=== PATIENT | male | born 1975 | race Caucasian/White ===

== ENCOUNTER 2020-10-15 10:55 | Emergency (ER) | payer OTHER ==
[2020-10-15] MEDS ORDERED: MVI, Adult with Vitamin K 10 ML, Thiamine 100 MG, Folic Acid 1 MG in Sodium Chloride 0.... IV ONE ×4 (11:19)
[2020-10-15] MEDS ORDERED: LORazepam 2 MG/ML SDV IVPUSH ONE ×2 (11:31→11:33)
[2020-10-15] MEDS ORDERED: Haloperidol Lactate 5 MG/ML SDV IM ONE (11:32)
--- NOTE | 2020-10-15 11:39 | PCM.EKG ---
#1 Interpretation EKG Date: 10/15/20 Time: 10:59 Rhythm: NSR Rate (Beats/Min): 84 [place]: Normal P-Wave: Present QRS: Normal ST-T: Normal QT: Normal Comparison: NA - No Prior EKG EKG Interpretation Comments: Sinus Rhythm
[2020-10-15 12:30] LABS: ACETAMINOPHEN <2.0 ug/mL; BLOOD UREA NITROGEN,BUN 12 mg/dL (7.0-18.0); CARBON DIOXIDE,CO2 25.1 mmol/L (21.0-32.0); CHLORIDE,CL 103 mmol/L (98-107); GLUCOSE RANDOM 107 mg/dL (74-106); POTASSIUM,K 3.8 mmol/L (3.5-5.1); SODIUM,NA 143 mmol/L (136-148)
--- NOTE | 2020-10-15 13:30 | CR ---
Indication: Injury Technique: Examination consists of a single view of the chest and 2 additional images of the left ribcage. Comparison: There are no older studies for comparison. Findings: Heart size normal. Patchy bilateral airspace disease primarily in the mid and upper lungs probably inflammatory. Further evaluation is advised. No visible pleural effusion or pneumothorax. Regarding the ribcage, no fracture or destructive process. Impression: 1. Bilateral airspace process probably inflammatory. This is unlikely to be post traumatic. Further evaluation is recommended. No pleural effusion or pneumothorax. Paragraph 2. Regarding the left ribcage, no specific abnormality visible. Dictated by Fernando Way MD @ 10/15/2020 1:28:[address] Fernando [address] @ Oct 15 2020 1:28PM
--- NOTE | 2020-10-15 13:30 | CR ---
Indication: Trauma Technique: A total of two views of the left radius and ulna were acquired. Comparison: None Findings: Bones: Alignment is normal. No fractures or bone lesions. Joint spaces: Unremarkable. Soft tissues: Unremarkable. Impression: Normal plain film examination of the left radius and ulna Dictated by Fernando Way MD @ 10/15/2020 1:30:[address] Fernando [address] @ Oct 15 2020 1:30PM
--- NOTE | 2020-10-15 13:32 | CR ---
Indication: Trauma Technique: A total of two views of the left humerus were acquired. Comparison: None Findings: Bones: Alignment is normal. No fractures or bone lesions. Joint spaces: Unremarkable. Soft tissues: Unremarkable. Impression: Normal plain film examination of the left humerus. Dictated by Fernando Way MD @ 10/15/2020 1:31:[address] Fernando [address] @ Oct 15 2020 1:31PM
--- NOTE | 2020-10-15 13:39 | CT ---
INDICATION: Head injury. TECHNIQUE: Scanning of the head was performed without IV contrast material. Coronal and sagittal reconstructions were obtained. COMPARISON: None. FINDINGS: No intracranial hemorrhage is demonstrated. No mass effect or ventricular enlargement is evident. No calvarial or obvious facial fracture is identified. The visualized paranasal and mastoid sinuses are clear. On image 19 of series 201, subtle calcifications are demonstrated in the superior mid cerebellum, extending lateral to the midline on both sides. Calcifications associated with the cavernoma are suspected. IMPRESSION: 1. Negative for acute traumatic abnormality. 2. 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 Please note that all CT scans at this facility use dose modulation, iterative reconstruction, and/or weight-based dosing when appropriate to reduce radiation dose to as low as reasonably achievable. Dictated by Jose Maria Henry MD @ 10/15/2020 1:36:[address] Jose Maria Henry @ Oct 15 2020 1:36PM
--- NOTE | 2020-10-15 13:39 | CT ---
INDICATION: Fell. TECHNIQUE: Volumetric helical scanning of the cervical spine was performed without contrast material. Sagittal and coronal reconstructions were also obtained. COMPARISON: None. FINDINGS: No fracture, subluxation or prevertebral soft tissue swelling is demonstrated. The cervical spine is a lordotic. The exam is otherwise unremarkable. IMPRESSION: Negative CT of the cervical spine except for alordosis. Please note that all CT scans at this facility use dose modulation, iterative reconstruction, and/or weight-based dosing when appropriate to reduce radiation dose to as low as reasonably achievable. Dictated by Jose Maria Henry MD @ 10/15/2020 1:38:[address] Jose Maria Henry @ Oct 15 2020 1:38PM
--- NOTE | 2020-10-15 16:40 | CT ---
HISTORY: Abnormal chest x-ray. TECHNIQUE: Intravenous contrast enhanced CT of the chest. 65 mL of Isovue-370 intravenous contrast administered. COMPARISON: Radiographs 10/15/2020. FINDINGS: There is no thoracic aortic aneurysm or dissection. No pericardial effusion. No acute pulmonary embolism is seen. Right paratracheal lymph node on image #42 measures 1.3 cm short axis. Right paratracheal lymph node on image #53 measures 1.2 cm short axis. Mildly prominent subcarinal lymph nodes also present. - There are reticulonodular and nodular opacities within both lungs which involve the upper to mid lung zones to a greater degree than the lower lung zones. The nodules are of variable size measuring under 10 mm. For example, 6 mm right lower lobe pulmonary nodule image #109. 7 mm nodule within the left lower lobe on image #124. Right lung nodule adjacent minor fissure on image #95 measures 1 cm with central calcification. Peribronchial thickening is present. There is no pleural effusion or pneumothorax. - Small hiatal hernia. - Degenerative changes of the spine. No acute thoracic fracture. IMPRESSION: 1. No acute pulmonary embolism. 2. Bilateral reticulonodular and nodular infiltrates which favor the upper and mid lung zones. Differential considerations include atypical infectious process, sarcoidosis, lymphangitic carcinomatosis versus other process. Consider pulmonary consultation. 3. Mild mediastinal adenopathy in the right paratracheal and subcarinal distributions. Please note that all CT scans at this facility use dose modulation, iterative reconstruction, and/or weight-based dosing when appropriate to reduce radiation dose to as low as reasonably achievable. Dictated by Rafi Abbott MD @ 10/15/2020 4:38:[address] Rafi Abbott @ Oct 15 2020 4:38PM
--- NOTE | 2020-10-15 17:19 | EDM.PDOC ---
ED HPI GENERAL MEDICAL PROBLEM - General Chief Complaint: Behavioral/Psych Stated Complaint: SUICIDAL Time Seen by Provider: 10/15/20 11:05 Source of Information: Reports: Patient, EMS History Limitations: Reports: No Limitations - History of Present Illness INITIAL COMMENTS - FREE TEXT/NARRATIVE: HISTORY AND PHYSICAL: History of present illness: Patient is a 45-year-old male who presents to the ED today via EMS for concern of alcohol intoxication and suicidal ideation. Per EMS, they state that patient was combative in route to the emergency room as he did not want to come so had called law enforcement to help assist. According to patient, he had been on a "5-day guerra "and was needing help to stop drinking as he was unable to do it on his own so called 911. When EMS arrived on scene, according to EMS, patient told them that he wanted to kill himself so they brought him here to the emergency room. Upon arrival to the ED, he did tell nursing staff he wanted to kill himself and has been drinking consistently for 5 days. On my examination, patient declines any suicidal ideation but does state that he has been drinking heavily and wants to be able to get sober. Patient states he does have a history of alcohol use in the past but has been sober for quite some time until 5 days ago. Patient states that he feels like he cannot get himself to quit. Patient denies any suicide attempts or any history of suicide attempts. Patient states he is on a Suboxone program and takes this daily and has not yet taken his Suboxone this morning. Patient denies fever, chills, chest pain, shortness of breath, or cough. Denies headache, neck stiff ness, change in vision, syncope, or near syncope. Denies nausea, vomiting, abdominal pain, diarrhea, constipation, or dysuria. Has not noted any blood in urine or stool. Patient has been eating and drinking appropriately. Review of systems: As per history of present illness and below otherwise all systems reviewed and negative. Past medical history: As per history of present illness and as reviewed below otherwise noncontributory. Surgical history: As per history of present illness and as reviewed below otherwise noncontributory. Social history: See social history for further information Family history: As per history of present illness and as reviewed below otherwise noncontributory. Physical exam: General: Patient is alert, oriented to person and place but not time, and in no acute distress. Clinically appears intoxicated. Patient pacing throughout exam room, anxious appearing. HEENT: Atraumatic, normocephalic, pupils equal and reactive bilaterally, negative for conjunctival pallor or scleral icterus, mucous membranes dry, TMs normal bilaterally, throat clear, neck supple, nontender, trachea midline. No drooling or trismus noted. No meningeal signs. No hot potato voice noted. Lungs/chest: Purple ecchymosis noted to the left posterior rib cage. Otherwise, clear to auscultation, breath sounds equal bilaterally, chest nontender. Heart: S1S2, regular rate and rhythm without overt murmur Abdomen: Soft, nondistended, nontender. Negative for masses or hepatosplenomegaly. Negative for costovertebral tenderness. Pelvis: Stable nontender. Genitourinary: Deferred. Rectal: Deferred. Skin: Intact, warm, dry. No lesions or rashes noted. Extremities: Purple ecchymosis noted to the left forearm and bicep area. Patient has full range of motion of all extremities without difficulty. Otherwise, atraumatic, negative for cords or calf pain. Neurovascular unremarkable. Neuro: Awake, alert, oriented. Cranial nerves II through XII unremarkable. Cerebellum unremarkable. Motor and sensory unremarkable throughout. Exam nonfocal. Notes: Dr. Helm verbally involved in patient case including disposition for patient. Patient is a 45-year-old male who presents to the ED today via EMS with concern of alcohol intoxication and suicidal ideation. Upon arrival to the ED, patient is vitally stable and clinically does appear intoxicated, confused, and anxious pacing through the room. He does not express suicidal ideation to myself, but did express to nursing staff and EMS suicidal ideation. Will perform mental health evaluation at this time and suicidal precautions initiated upon arrival to ED. Patient states bruising noted on physical exam is secondary to falling on his dog's kennel due to alcohol intoxication. Due to bruising noted over the left posterior rib cage and bruising noted to the arm we will also obtain imaging of this. Due to known fall, and alcohol intoxication will also obtain head CT as unsure if patient hit head during fall. While awaiting lab work, I was informed that patient is ripping hospital gowns and showing aggressive behavior. Upon my reexamination of patient, he states that he is feeling anxious and like he cannot sit still. Patient states that he believes he is withdrawing from his Suboxone as he has not taken it this morning. Patient does have Suboxone in his wallet which is in the possession of nursing staff. I did allow patient to take his own personal dose of Suboxone in the ED. Will also give a dose of Haldol and Ativan at this time and reassess patient. CBC mild derangements unremarkable. CMP noted for mild elevation in glucose at 107, calcium 8.1, ALT of 74, mild elevation of creatinine kinase at 312, otherwise mild derangements unremarkable. TSH 1.56. Urinalysis is clear. Salicylate 1.4. Negative urine drug screen. Acetaminophen negative. ETOH 234. Covid negative. Repeat chest x-ray shows bilateral airspace process probably inflammatory. This is unlikely to be posttraumatic. Further evaluation is recommended. No pleural effusion or pneumothorax. Regarding left rib cage, no specific abnormality visible. In the presence of a negative Covid, will obtain and CT scan to further assess chest x-ray interpretation. Upon reevaluation of patient, he is more comfortable after taking his Suboxone and given Haldol and Ativan today in the ED and resting / sleeping awaiting diagnostic completion. Discussed with patient chest x-ray findings at this time and that I would like to obtain an angiography CT of his chest to further assess the airspace process noted on chest x-ray. He is agreeable to this. Forearm x-ray left shows normal plain film examination of the left radius and ulna. Humerus x-ray left shows normal plain film examination of the left humerus. Cervical spine CT shows negative CT of the cervical spine. Head CT shows negative for acute traumatic abnormality. 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 All incidental findings today discussed with patient and the importance for follow-up with primary care provider. Ang CT scan shows no acute pulmonary embolism. Bilateral reticular nodular and nodular infiltrates which favor the upper and midlung zones. Differential considerations include atypical infectious process, sarcoidosis, lymphangitic carcinomatosis versus other process. Concern pulmonary consult. Mild mediastinal adenopathy in the right paratracheal and subcranial distributions. I did call and speak to the mechanical energy engineer on-call for Dr. Danielle Martins, and thoroughly discussed patient's case. He recommends placing patient on doxycycline 100 mg twice daily for 7 days and to have a repeat chest x-ray in 3 to 4 weeks and close follow-up with his primary care provider. He recommends that if this does not resolve the infectious process, then can consider referral for pulmonology consult. At this time, due to delays in obtaining ANG CT scan and completion of diagnostics, at this time, patient has now been in the ED for 6 hours. Upon my reexamination of patient, he is clinically sober and alert and orientated x 4. He is no longer anxious/aggressive, well appearing, vitally stable and comfortable. Upon my reassessment, patient declines adamantly suicidal ideation/plan 16:40: Suicide precautions lifted in agreement with myself and Dr. Helm. Patient is sober, alert, orientated x 4 and declining suicidal thoughts, ideation, or plan. Witnessed by myself and nursing staff. Signs and symptoms that were prompt return to the ED thoroughly discussed with patient. Discussed importance for follow-up with a primary care provider. Voices understanding and is agreeable to plan of care. Denies any further questions or concerns at this time. Diagnostics: CBC, CMP, magnesium, UA, urine drug screen, acetaminophen, salicylate, TSH, EKG, ethanol, rib with chest x-ray, humerus x-ray, forearm x-ray, head CT, cervical spine CT, angiography chest CT Therapeutics: Ativan, Haldol, banana bag Prescription: Doxycycline Impression: Alcohol intoxication Atypical pneumonia Plan: 1. Take medication as prescribed. If you desire out patient resources to stop drinking, they have been provided above for you to call. 2. Follow-up with your primary care provider in 3 to 4 weeks for repeat chest x-ray as discussed. Return to the ED as needed and as discussed. Definitive disposition and diagnosis as appropriate pending reevaluation and review of above. - Related Data Allergies Allergy/AdvReac Type Severity Reaction Status Date / Time Penicillins Allergy Hives Verified 10/15/20 11:34 Home Meds: Home Meds Doxycycline [Vibramycin] 100 mg PO BID 7 Days #14 cap 10/15/20 [Rx] Sertraline [Zoloft] 50 mg PO DAILY 10/15/20 [History] buPROPion [Wellbutrin] 1 tab PO DAILY 10/15/20 [History] Past Medical History - Past Health History Medical/Surgical History: Denies Medical/Surgical History Respiratory History: Reports: Asthma Psychiatric History: Reports: Anxiety, Depression - Infectious Disease History Infectious Disease History: Reports: None Social & Family History - Family History Family Medical History: No Pertinent Family History - Tobacco Use Tobacco Use Status *Q: Never Tobacco User - Caffeine Use Caffeine Use: Reports: None - Recreational Drug Use Recreational Drug Use: No ED ROS GENERAL - Review of Systems Review Of Systems: Comprehensive ROS is negative, except as noted in HPI. ED EXAM, GENERAL - Physical Exam Exam: See Below (see dictation) Course - Vital Signs Last Recorded V/S: Last Vital Signs Temp 97.6 F 10/15/20 10:55 Pulse 93 10/15/20 18:02 Resp 18 10/15/20 18:02 BP 139/92 H 10/15/20 18:02 Pulse Ox 94 L 10/15/20 18:02 - Orders/Labs/Meds Labs: Laboratory Tests 10/15/20 10/15/20 10/15/20 Range/Units 11:23 11:23 11:24 WBC 8.28 (4.0-11.0) K/uL RBC 5.34 (4.50-5.90) M/uL Hgb 15.5 (13.0-17.0) g/dL Hct 45.3 (38.0-50.0) % MCV 84.8 (80.0-98.0) fL MCH 29.0 (27.0-32.0) pg MCHC 34.2 (31.0-37.0) g/dL RDW Std Deviation 41.2 (28.0-62.0) fl RDW Coeff of Davon 13 (11.0-15.0) % Plt Count 319 (150-400) K/uL MPV 9.80 (7.40-12.00) fL Neut % (Auto) 77.1 (48.0-80.0) % Lymph % (Auto) 16.7 (16.0-40.0) % Glynn % (Auto) 5.7 (0.0-15.0) % Eos % (Auto) 0.1 (0.0-7.0) % Baso % (Auto) 0.4 (0.0-1.5) % Neut # (Auto) 6.4 H (1.4-5.7) K/uL Lymph # (Auto) 1.4 (0.6-2.4) K/uL Glynn # (Auto) 0.5 (0.0-0.8) K/uL Eos # (Auto) 0.0 (0.0-0.7) K/uL Baso # (Auto) 0.0 (0.0-0.1) K/uL Nucleated RBC % 0.0 /100WBC Nucleated RBCs # 0 K/uL Sodium 143 (136-148) mmol/L Potassium 3.8 (3.5-5.1) mmol/L Chloride 103 (98-107) mmol/L Carbon Dioxide 25.1 (21.0-32.0) mmol/L BUN 12 (7.0-18.0) mg/dL Creatinine 0.9 (0.8-1.3) mg/dL Est Cr Clr Drug Dosing 116.16 mL/min Estimated GFR (MDRD) > 60.0 ml/min Glucose 107 H (74-106) mg/dL POC Glucose 109 H (70-99) mg/dL Calcium 8.1 L (8.5-10.1) mg/dL Magnesium 2.1 (1.8-2.4) mg/dL Total Bilirubin 0.3 (0.2-1.0) mg/dL AST 27 (15-37) IU/L ALT 74 H (14-63) IU/L Alkaline Phosphatase 106 (46-116) U/L Creatine Kinase 312 H (26-308) U/L Total Protein 8.5 H (6.4-8.2) g/dL Albumin 3.8 (3.4-5.0) g/dL Globulin 4.7 H (2.6-4.0) g/dL Albumin/Globulin Ratio 0.8 L (0.9-1.6) TSH 3rd Generation 1.56 (0.36-3.74) uIU/mL Urine Color Urine Appearance Urine pH (5.0-8.0) Ur Specific [place] (1.001-1.035) Urine Protein (NEGATIVE) mg/dL Urine Glucose (UA) (NEGATIVE) mg/dL Urine Ketones (NEGATIVE) mg/dL Urine Occult Blood (NEGATIVE) Urine Nitrite (NEGATIVE) Urine Bilirubin (NEGATIVE) Urine Urobilinogen (<2.0) EU/dL Ur Leukocyte Esterase (NEGATIVE) Urine RBC (0-2/HPF) Urine WBC (0-5/HPF) Ur Epithelial Cells (NONE-FEW) Urine Bacteria (NEGATIVE) Salicylates 1.4 (0-20) mg/dL Urine Opiates Screen (NEGATIVE) Ur Oxycodone Screen (NEGATIVE) Urine Methadone Screen (NEGATIVE) Acetaminophen <2.0 ug/mL Ur Barbiturates Screen (NEGATIVE) Ur Phencyclidine Scrn (NEGATIVE) Ur Amphetamine Screen (NEGATIVE) U Methamphetamines Scrn (NEGATIVE) U Benzodiazepines Scrn (NEGATIVE) U Cocaine Metab Screen (NEGATIVE) U Marijuana (THC) Screen (NEGATIVE) Ethyl Alcohol 234 mg/dL SARS-CoV-2 RNA (IZABELA) (NEGATIVE) 10/15/20 10/15/20 10/15/20 Range/Units 12:00 12:00 14:00 WBC (4.0-11.0) K/uL RBC (4.50-5.90) M/uL Hgb (13.0-17.0) g/dL Hct (38.0-50.0) % MCV (80.0-98.0) fL MCH (27.0-32.0) pg MCHC (31.0-37.0) g/dL RDW Std Deviation (28.0-62.0) fl RDW Coeff of Davon (11.0-15.0) % Plt Count (150-400) K/uL MPV (7.40-12.00) fL Neut % (Auto) (48.0-80.0) % Lymph % (Auto) (16.0-40.0) % Glynn % (Auto) (0.0-15.0) % Eos % (Auto) (0.0-7.0) % Baso % (Auto) (0.0-1.5) % Neut # (Auto) (1.4-5.7) K/uL Lymph # (Auto) (0.6-2.4) K/uL Glynn # (Auto) (0.0-0.8) K/uL Eos # (Auto) (0.0-0.7) K/uL Baso # (Auto) (0.0-0.1) K/uL Nucleated RBC % /100WBC Nucleated RBCs # K/uL Sodium (136-148) mmol/L Potassium (3.5-5.1) mmol/L Chloride (98-107) mmol/L Carbon Dioxide (21.0-32.0) mmol/L BUN (7.0-18.0) mg/dL Creatinine (0.8-1.3) mg/dL Est Cr Clr Drug Dosing mL/min Estimated GFR (MDRD) ml/min Glucose (74-106) mg/dL POC Glucose (70-99) mg/dL Calcium (8.5-10.1) mg/dL Magnesium (1.8-2.4) mg/dL Total Bilirubin (0.2-1.0) mg/dL AST (15-37) IU/L ALT (14-63) IU/L Alkaline Phosphatase (46-116) U/L Creatine Kinase (26-308) U/L Total Protein (6.4-8.2) g/dL Albumin (3.4-5.0) g/dL Globulin (2.6-4.0) g/dL Albumin/Globulin Ratio (0.9-1.6) TSH 3rd Generation (0.36-3.74) uIU/mL Urine Color YELLOW Urine Appearance CLEAR Urine pH 6.0 (5.0-8.0) Ur Specific [place] 1.025 (1.001-1.035) Urine Protein NEGATIVE (NEGATIVE) mg/dL Urine Glucose (UA) NEGATIVE (NEGATIVE) mg/dL Urine Ketones NEGATIVE (NEGATIVE) mg/dL Urine Occult Blood TRACE-INTACT H (NEGATIVE) Urine Nitrite NEGATIVE (NEGATIVE) Urine Bilirubin NEGATIVE (NEGATIVE) Urine Urobilinogen 0.2 (<2.0) EU/dL Ur Leukocyte Esterase NEGATIVE (NEGATIVE) Urine RBC 0-2 (0-2/HPF) Urine WBC 0-1 (0-5/HPF) Ur Epithelial Cells RARE (NONE-FEW) Urine Bacteria RARE (NEGATIVE) Salicylates (0-20) mg/dL Urine Opiates Screen NEGATIVE (NEGATIVE) Ur Oxycodone Screen NEGATIVE (NEGATIVE) Urine Methadone Screen NEGATIVE (NEGATIVE) Acetaminophen ug/mL Ur Barbiturates Screen NEGATIVE (NEGATIVE) Ur Phencyclidine Scrn NEGATIVE (NEGATIVE) Ur Amphetamine Screen NEGATIVE (NEGATIVE) U Methamphetamines Scrn NEGATIVE (NEGATIVE) U Benzodiazepines Scrn NEGATIVE (NEGATIVE) U Cocaine Metab Screen NEGATIVE (NEGATIVE) U Marijuana (THC) Screen NEGATIVE (NEGATIVE) Ethyl Alcohol mg/dL SARS-CoV-2 RNA (IZABELA) NEGATIVE (NEGATIVE) Meds: Medications Discontinued Medications Generic Name Dose Route Start Last Admin Trade Name Kristyn PRN Reason Stop Dose Admin Haloperidol Lactate 5 mg 10/15/20 11:32 10/15/20 12:25 Haloperidol Lactate 5 Mg/Ml Sdv IM 10/15/20 11:33 5 mg ONETIME ONE Administration Multivitamins/Minerals 10 ml/ 1,011.2 mls @ 999 mls/hr 10/15/20 11:19 10/15/20 12:27 Thiamine HCl 100 mg/ Folic IV 10/15/20 12:19 999 mls/hr Acid 1 mg/ Sodium Chloride ONETIME ONE Administration Iopamidol 65 ml 10/15/20 18:13 10/15/20 18:14 Iopamidol 755 Mg/Ml 500 Ml Multipack Bottle IVPUSH 10/15/20 18:14 65 ml ONETIME STA Administration Lorazepam 2 mg 10/15/20 11:31 10/15/20 12:15 Lorazepam 2 Mg/Ml Sdv IVPUSH 10/15/20 11:32 Not Given ONETIME ONE Lorazepam 1 mg 10/15/20 11:33 10/15/20 12:26 Lorazepam 2 Mg/Ml Sdv IVPUSH 10/15/20 11:34 1 mg ONETIME ONE Administration Departure - Departure Time of Disposition: 17:17 Disposition: Home, Self-Care 01 Clinical Impression: Atypical pneumonia Alcohol intoxication Qualifiers: Complication of substance-induced condition: with unspecified complication Qualified Code(s): F10.929 - Alcohol use, unspecified with intoxication, unspecified - Discharge Information Prescriptions: Doxycycline [Vibramycin] 100 mg PO BID 7 Days #14 cap Instructions: Alcohol Intoxication, [id number], Community-Acquired Pneumonia, Adult, [id number] Referrals: PCP,None [Primary Care Provider] - Forms: ED Department Discharge Additional Instructions: The following information is given to patients seen in the emergency department who are being discharged to home. This information is to outline your options for follow-up care. We provide all patients seen in our emergency department with a follow-up referral. The need for follow-up, as well as the timing and circumstances, are variable depending upon the specifics of your emergency department visit. If you don't have a primary care physician on staff, we will provide you with a referral. We always advise you to contact your personal physician following an emergency department visit to inform them of the circumstance of the visit and for follow-up with them and/or the need for any referrals to a consulting specialist. The emergency department will also refer you to a specialist when appropriate. This referral assures that you have the opportunity for follow-up care with a specialist. All of these measure are taken in an effort to provide you with optimal care, which includes your follow-up. Under all circumstances we always encourage you to contact your private physician who remains a resource for coordinating your care. When calling for follow-up care, please make the office aware that this follow-up is from your recent emergency room visit. If for any reason you are refused follow-up, please contact the [facility] Emergency Department at and asked to speak to the emergency department charge nurse. [facility] [address] [place] [id number] [facility] [address] [place] [id number] [facility] [address], [place] [facility] [place] [address], [place] [facility] [place] [address] [place] [address] [facility] Partial Hospitalization Program [address] [address] [facility] [address] [facility] [id number] 1. Take medication as prescribed. If you desire out patient resources to stop drinking, they have been provided above for you to call. 2. Follow-up with your primary care provider in 3 to 4 weeks for repeat chest x-ray as discussed. Return to the ED as needed and as discussed. Sepsis Event Note (ED) - Evaluation Sepsis Screening Result: No Definite Risk
[2020-10-15] MEDS ORDERED: Iopamidol 755 MG/ML 500 ML Multipack Bottle IVPUSH STA (18:13)
== END 2020-10-15 18:02 | disposition home or self-care (01) ==
LOC: MW.ED 10:55
DX: F10.129 Alcohol abuse with intoxication, unspecified (principal); J18.9 Pneumonia, unspecified organism; J45.909 Unspecified asthma, uncomplicated; Z88.0 Allergy status to penicillin; Z79.899 Other long term (current) drug therapy; Z20.822 Contact with and (suspected) exposure to COVID-19; Y90.7 Blood alcohol level of 200-239 mg/100 ml
CPT/HCPCS: 36415; 70450; 71101; 71275; 72125; 73060; 73090; 80053; 80143; 80179; 80305; 80307; 81001; 82550; 82947; 83735; 84443; 85025; 87635; 93005; 96365; 96375; 99285; J1630; J2060; J3411; J7030; Q9967; 93010; 99284; U0002

== ENCOUNTER 2020-10-20 18:18 | Emergency (ER) | payer OTHER ==
[2020-10-20] MEDS ORDERED: LORazepam 2 MG/ML SDV IVPUSH ONE ×3 (18:22→21:37)
[2020-10-20] MEDS ORDERED: Sodium Chloride 0.9% 2.5 ML Syringe FLUSH PRN (18:22)
[2020-10-20] MEDS ORDERED: Sodium Chloride 0.9% 10 ML Syringe FLUSH PRN (18:22)
[2020-10-20] MEDS ORDERED: Ondansetron 4 MG/2 ML SDV IVPUSH ONE (18:22)
[2020-10-20] MEDS ORDERED: Haloperidol Lactate 5 MG/ML SDV ONE (18:23)
[2020-10-20] MEDS ORDERED: LORazepam 2 MG/ML SDV ONE ×2 (18:23→18:39)
[2020-10-20] MEDS ORDERED: Haloperidol Lactate 5 MG/ML SDV IM ONE (18:28)
[2020-10-20] MEDS ORDERED: MVI, Adult with Vitamin K 10 ML, Thiamine 100 MG, Folic Acid 1 MG in Sodium Chloride 0.... IV ONE ×4 (18:30)
--- NOTE | 2020-10-20 18:36 | EDM.PDOC ---
<Fareed Lin - Last Filed: 10/20/20 18:34> ED HPI GENERAL MEDICAL PROBLEM - General Chief Complaint: Drug or Alcohol Abuse Stated Complaint: INTOXICATION Time Seen by Provider: 10/20/20 18:32 - History of Present Illness INITIAL COMMENTS - FREE TEXT/NARRATIVE: History of present illness: [] This patient who has been sober for 10 years according to the mother began to drink again 3 weeks or so ago. He was seen here for possible detox a few days ago and diagnosed with pneumonia. He was started on antibiotics. He continues to drink. He comes in apologetic crying and begging for help. He says he needs help but he does not trust us to give him help because he does not think we gave him enough help last time. He also is requesting Valium. He clearly states that he wants to get sober. He does not feel he can do this on his own. Mother says he is however intoxicated at the moment. The patient has fallen recently. The patient has bruises over his arm. The mother says he fell onto a hard surface. The patient has been to detox in the remote past. He clearly states he wants to live and he wants help. Review of systems: As per history of present illness and below otherwise all systems reviewed and negative. Past medical history: As per history of present illness and as reviewed below otherwise noncontributory. Surgical history: As per history of present illness and as reviewed below otherwise noncontributory. Social history: No reported history of drug or alcohol abuse. Family history: As per history of present illness and as reviewed below otherwise noncontributory. Physical exam: Constitutional - well developed, well-nourished and in no acute distress HEENT - normocephalic, no evidence of trauma - external nose and mouth normal - no mass in neck and no JVD - mucosae moist EYES - full EOM, PERRL, no icterus - no evidence of inflammation, injection, or drainage Respiratory - no respiratory distress, equal bilateral expansion, lungs clear to auscultation and no abnormal lung sounds Cardiovascular - Regular Rhythm with S1 and S2 appreciated and no murmur, gallop or rub. GI - abdomen soft without distension or organomegaly - normal bowel sounds - no guard or rebound Musculoskeletal no gross deformity of long bones or joints - no tenderness, swelling or edema Neurologic - Alert and oriented times four -slurred speech and ataxia. He got up and tried to walk. I reviewed his records and he is trying to leave last time after he decided he wanted help. Medications given with the approval of the mother and based on the fact that they worked and helped him last time. CN II-XII grossly intact - motor sensory and coordination symmetrically normal Psychiatric - appropriate mood and affect with normal thought content Hematologic - No petechiae or purpura - mucosa appropriate color and sclera not pale - normal nail bed color and refill Integument - no rash or evidence of trauma - normal turgor Diagnostics: [] Therapeutics: [] Impression: [] Plan: [] Definitive disposition and diagnosis as appropriate pending reevaluation and review of above. - Related Data Allergies Allergy/AdvReac Type Severity Reaction Status Date / Time Penicillins Allergy Hives Verified 10/20/20 18:22 Home Meds: Home Meds Doxycycline [Vibramycin] 100 mg PO BID 7 Days #14 cap 10/15/20 [Rx] Sertraline [Zoloft] 50 mg PO DAILY 10/15/20 [History] buPROPion [Wellbutrin] 1 tab PO DAILY 10/15/20 [History] Past Medical History - Past Health History Medical/Surgical History: Denies Medical/Surgical History HEENT History: Reports: None Cardiovascular History: Reports: None Respiratory History: Reports: Asthma Gastrointestinal History: Reports: None Genitourinary History: Reports: None Musculoskeletal History: Reports: None Neurological History: Reports: None Psychiatric History: Reports: Anxiety, Depression Endocrine/Metabolic History: Reports: None Hematologic History: Reports: None Immunologic History: Reports: None Oncologic (Cancer) History: Reports: None Dermatologic History: Reports: None - Infectious Disease History Infectious Disease History: Reports: None - Past Surgical History Head Surgeries/Procedures: Reports: None HEENT Surgical History: Reports: None Cardiovascular Surgical History: Reports: None Respiratory Surgical History: Reports: None GI Surgical History: Reports: None Male Surgical History: Reports: None Endocrine Surgical History: Reports: None Neurological Surgical History: Reports: None Musculoskeletal Surgical History: Reports: None Oncologic Surgical History: Reports: None Dermatological Surgical History: Reports: None Social & Family History - Family History Family Medical History: No Pertinent Family History - Tobacco Use Tobacco Use Status *Q: Never Tobacco User Second Hand Smoke Exposure: No - Caffeine Use Caffeine Use: Reports: None - Recreational Drug Use Recreational Drug Use: No ED ROS GENERAL - Review of Systems Review Of Systems: Comprehensive ROS is negative, except as noted in HPI. ED EXAM, GENERAL - Physical Exam Exam: See Below Free Text/Narrative:: My physical exam is in the HPI Departure - Departure Disposition: DC/[facility]fer to [facility] 02 Clinical Impression: Alcohol abuse - Discharge Information Forms: ED Department Discharge Sepsis Event Note (ED) - Evaluation Sepsis Screening Result: No Definite Risk <Marcos Santiago - Last Filed: 10/20/20 20:43> Course - Vital Signs Last Recorded V/S: Last Vital Signs Temp 98.4 F 10/20/20 18:19 Pulse 94 10/20/20 19:30 Resp 18 10/20/20 19:30 BP 111/75 10/20/20 19:30 Pulse Ox 98 10/20/20 18:19 - Orders/Labs/Meds Orders: Active Orders 24 hr Category Date Time Status CORONAVIRUS COVID-19 IZABELA [MOLEC] Stat Lab 10/20/20 20:39 Ordered DRUG SCREEN, URINE [URCHEM] Stat Lab 10/20/20 18:22 Ordered Sodium Chloride 0.9% [Saline Flush] Med 10/20/20 18:22 Active 10 ml FLUSH ASDIRECTED PRN Sodium Chloride 0.9% [Saline Flush] Med 10/20/20 18:22 Active 2.5 ml FLUSH ASDIRECTED PRN Saline Lock Insert [OM.PC] Stat Oth 10/20/20 18:22 Ordered Medication Orders Sodium Chloride (Sodium Chloride 0.9% 10 Ml Syringe) 10 ml FLUSH ASDIRECTED PRN PRN Reason: Keep Vein Open Last Admin: 10/20/20 18:32 Dose: 10 ml Documented by: MINA Sodium Chloride (Sodium Chloride 0.9% 2.5 Ml Syringe) 2.5 ml FLUSH ASDIRECTED PRN PRN Reason: Keep Vein Open Last Admin: 10/20/20 18:32 Dose: 2.5 ml Documented by: MINA Labs: Laboratory Tests 10/20/20 10/20/20 10/20/20 Range/Units 18:30 18:30 18:34 WBC 8.41 (4.0-11.0) K/uL RBC 5.65 (4.50-5.90) M/uL Hgb 16.5 (13.0-17.0) g/dL Hct 48.0 (38.0-50.0) % MCV 85.0 (80.0-98.0) fL MCH 29.2 (27.0-32.0) pg MCHC 34.4 (31.0-37.0) g/dL RDW Std Deviation 41.3 (28.0-62.0) fl RDW Coeff of Davon 14 (11.0-15.0) % Plt Count 265 (150-400) K/uL MPV 9.90 (7.40-12.00) fL Neut % (Auto) 77.0 (48.0-80.0) % Lymph % (Auto) 14.4 L (16.0-40.0) % [place] % (Auto) 8.0 (0.0-15.0) % Eos % (Auto) 0.4 (0.0-7.0) % Baso % (Auto) 0.2 (0.0-1.5) % Neut # (Auto) 6.5 H (1.4-5.7) K/uL Lymph # (Auto) 1.2 (0.6-2.4) K/uL [place] # (Auto) 0.7 (0.0-0.8) K/uL Eos # (Auto) 0.0 (0.0-0.7) K/uL Baso # (Auto) 0.0 (0.0-0.1) K/uL Nucleated RBC % 0.0 /100WBC Nucleated RBCs # 0 K/uL Sodium 141 (136-148) mmol/L Potassium 3.8 (3.5-5.1) mmol/L Chloride 104 (98-107) mmol/L Carbon Dioxide 25.7 (21.0-32.0) mmol/L BUN 9 (7.0-18.0) mg/dL Creatinine 1.0 (0.8-1.3) mg/dL Est Cr Clr Drug Dosing 107.64 mL/min Estimated GFR (MDRD) > 60.0 ml/min Glucose 148 H (74-106) mg/dL POC Glucose 132 H (70-99) mg/dL Calcium 8.3 L (8.5-10.1) mg/dL Total Bilirubin 0.3 (0.2-1.0) mg/dL AST 40 H (15-37) IU/L ALT 89 H (14-63) IU/L Alkaline Phosphatase 112 (46-116) U/L Total Protein 8.3 H (6.4-8.2) g/dL Albumin 3.7 (3.4-5.0) g/dL Globulin 4.6 H (2.6-4.0) g/dL Albumin/Globulin Ratio 0.8 L (0.9-1.6) Ethyl Alcohol 376 mg/dL Meds: Medications Generic Name Dose Route Start Last Admin Trade Name Freq PRN Reason Stop Dose Admin Sodium Chloride 10 ml 10/20/20 18:22 10/20/20 18:32 Sodium Chloride 0.9% 10 Ml Syringe FLUSH 10 ml ASDIRECTED PRN Administration Keep Vein Open Sodium Chloride 2.5 ml 10/20/20 18:22 10/20/20 18:32 Sodium Chloride 0.9% 2.5 Ml Syringe FLUSH 2.5 ml ASDIRECTED PRN Administration Keep Vein Open Discontinued Medications Generic Name Dose Route Start Last Admin Trade Name Freq PRN Reason Stop Dose Admin Haloperidol Lactate Confirm 10/20/20 18:23 10/20/20 18:29 Haloperidol Lactate 5 Mg/Ml Sdv Administered 10/20/20 18:24 Not Given Dose 5 mg .ROUTE .STK-MED ONE Haloperidol Lactate 5 mg 10/20/20 18:28 10/20/20 18:29 Haloperidol Lactate 5 Mg/Ml Sdv IM 10/20/20 18:29 5 mg ONETIME ONE Administration Multivitamins/Minerals 10 ml/ 1,011.2 mls @ 500 mls/hr 10/20/20 18:30 10/20/20 18:50 Thiamine HCl 100 mg/ Folic IV 10/20/20 20:31 500 mls/hr Acid 1 mg/ Sodium Chloride ONETIME ONE Administration Lorazepam 1 mg 10/20/20 18:22 10/20/20 18:30 Lorazepam 2 Mg/Ml Sdv IVPUSH 10/20/20 18:23 1 mg ONETIME ONE Administration Lorazepam Confirm 10/20/20 18:23 10/20/20 18:29 Lorazepam 2 Mg/Ml Sdv Administered 10/20/20 18:24 Not Given Dose 2 mg .ROUTE .STK-MED ONE Lorazepam 2 mg 10/20/20 18:40 10/20/20 18:41 Lorazepam 2 Mg/Ml Sdv IVPUSH 10/20/20 18:41 2 mg ONETIME ONE Administration Lorazepam Confirm 10/20/20 18:39 10/20/20 18:43 Lorazepam 2 Mg/Ml Sdv Administered 10/20/20 18:40 Not Given Dose 2 mg .ROUTE .STK-MED ONE Ondansetron HCl 4 mg 10/20/20 18:22 10/20/20 18:32 Ondansetron 4 Mg/2 Ml Sdv IVPUSH 10/20/20 18:23 4 mg ONETIME ONE Administration - Re-Assessments/Exams Free Text/Narrative Re-Assessment/Exam: 10/20/20 20:42 Labs unremarkable aside from elevated blood alcohol level. Patient wants to go to inpatient alcohol rehab. I talked with Dr. Tijerina at [facility] who agrees to accept patient for transfer Departure - Departure Time of Disposition: 20:42 Condition: Fair Sepsis Event Note (ED) - Focused Exam Vital Signs: Vital Signs Temp Pulse Resp BP Pulse Ox 10/20/20 19:30 94 18 111/75 10/20/20 18:19 98.4 F 82 15 122/79 98 - My Orders Last 24 Hours: My Active Orders 10/20/20 20:39 CORONAVIRUS COVID-19 IZABELA [MOLEC] Stat - Assessment/Plan Last 24 Hours: My Active Orders 10/20/20 20:39 CORONAVIRUS COVID-19 IZABELA [MOLEC] Stat
[2020-10-20 18:58] LABS: BLOOD UREA NITROGEN,BUN 9 mg/dL (7.0-18.0); CARBON DIOXIDE,CO2 25.7 mmol/L (21.0-32.0); CHLORIDE,CL 104 mmol/L (98-107); GLUCOSE RANDOM 148 mg/dL (74-106); POTASSIUM,K 3.8 mmol/L (3.5-5.1); SODIUM,NA 141 mmol/L (136-148)
[2020-10-20] MEDS ORDERED: LORazepam 2 MG/ML SDV IM ONE (21:38)
== END 2020-10-20 23:45 ==
LOC: MW.ED 18:18
DX: F10.129 Alcohol abuse with intoxication, unspecified (principal); J45.909 Unspecified asthma, uncomplicated; Z79.899 Other long term (current) drug therapy; Z88.0 Allergy status to penicillin; Y90.8 Blood alcohol level of 240 mg/100 ml or more
CPT/HCPCS: 36415; 80053; 80305; 80307; 82947; 85025; 87635; 96365; 96372; 96375; 99285; J1630; J2060; J2405; J3411; J7030; 99284; U0002

== ENCOUNTER 2020-11-28 20:49 | Emergency (ER) | payer OTHER ==
[2020-11-28] MEDS ORDERED: Sodium Chloride 0.9% 1,000 ML IV ONE (21:02)
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
[2020-11-28 21:31] LABS: BLOOD UREA NITROGEN,BUN 12 mg/dL (7.0-18.0); CARBON DIOXIDE,CO2 22.9 mmol/L (21.0-32.0); CHLORIDE,CL 103 mmol/L (98-107); GLUCOSE RANDOM 101 mg/dL (74-106); POTASSIUM,K 3.7 mmol/L (3.5-5.1); SODIUM,NA 143 mmol/L (136-148)
--- NOTE | 2020-11-28 22:57 | CT ---
For Patients: As a result of the Cures Act, medical imaging exams and procedure reports are released immediately into your electronic medical record. You may view this report before your referring provider. If you have questions, please contact your health care provider. INDICATION: PAIN CT HEAD WITHOUT CONTRAST TECHNIQUE: Multiple axial CT images were performed through the head without intravenous contrast administration. COMPARISON: 10/15/[address] FINDINGS: No acute intracranial hemorrhage is identified. No extra-axial collections are evident and there is no mass effect or midline shift. Ventricles are normal in size and configuration. There has been no significant change in subtle punctate calcifications within the cerebellum straddling the midline, as on image 18 of series 201 and images 49 through 57 of series 205. Brain parenchyma elsewhere appears normal with unremarkable borden-white differentiation. Osseous structures are within normal limits and no fractures are seen. Included portions of the paranasal sinuses and mastoid air cells are normally aerated. IMPRESSION: 1. No acute intracranial abnormality identified. 2. Unchanged subtle punctate calcifications in the cerebellum, possibly representing a cavernous angioma. If desired, this could be further evaluated with outpatient head MRI. PILLO RANGEL MD [facility] Dictated by Bill Rangel MD @ 11/28/2020 10:54:37 PM Please note that all CT scans at this facility use dose modulation, iterative reconstruction, and/or weight-based dosing when appropriate to reduce radiation dose to as low as reasonably achievable. Dictated by: Bill Rangel MD @ 11/28/2020 22:54:53 (Electronically Signed)
== END 2020-11-28 23:02 ==
LOC: MW.ED 20:49
DX: Z02.89 Encounter for other administrative examinations (principal); F10.129 Alcohol abuse with intoxication, unspecified; Z88.0 Allergy status to penicillin; Y90.8 Blood alcohol level of 240 mg/100 ml or more
CPT/HCPCS: 36415; 70450; 80053; 80307; 85025; 99284; J7030

== ENCOUNTER 2020-11-30 16:38 | Emergency (ER) | payer OTHER ==
[2020-11-30] MEDS ORDERED: Sodium Chloride 0.9% 1,000 ML IV ONE (17:06)
[2020-11-30] MEDS ORDERED: diphenhydrAMINE 50 MG/ML SDV IM ONE (17:06)
[2020-11-30] MEDS ORDERED: Sodium Chloride 0.9% 2.5 ML Syringe FLUSH PRN (17:06)
[2020-11-30] MEDS ORDERED: Sodium Chloride 0.9% 10 ML Syringe FLUSH PRN (17:06)
[2020-11-30] MEDS ORDERED: OLANZapine 10 MG in Water For Injection, Sterile 2.1 ML IM ONE (17:07)
--- NOTE | 2020-11-30 17:37 | EDM.PDOC ---
<Trever Head - Last Filed: 11/30/20 17:41> ED HPI GENERAL MEDICAL PROBLEM - General Chief Complaint: General Stated Complaint: EMS Time Seen by Provider: 11/30/20 16:50 - History of Present Illness INITIAL COMMENTS - FREE TEXT/NARRATIVE: HISTORY AND PHYSICAL: History of present illness: This is a 45-year-old gentleman with a history significant for alcohol use disorder in the past as well as a history currently being on Suboxone therapy who presents to the ER today by EMS and police secondary to alcohol intoxication and aggressive behavior requiring police assistance to bring him here to the ED. In reviewing his old records, the patient was recently seen and evaluated here in the ER by Dr. Lin on October 20 and was transferred to [facility] for assistance with alcohol detox. Review of that visit chart reports that the patient's mother reports that he has been sober for approximately 10 years and began drinking approximately 2 months ago. Patient has been to the ER 3 times within the last 2-month secondary to acute alcohol intoxication, aggressive behavior, and requesting assistance with alcohol detox. Patient did get assistance on October 20 up in [facility] but the results of which are unclear. According to EMS, patient called his AA sponsor this evening secondary to requesting help. Is a sponsor was unable to bring him here to the hospital so not on one was dispatched to assist patient with coming to the ED for assistance. Per EMS, the patient's home is inhabitable. Patient required law enforcement dispatch to assist with transfer of patient here secondary to aggr essive behavior with EMS. Further history is unobtainable from the patient secondary to his severe intoxication. Review of systems: As per history of present illness and below otherwise all systems reviewed and negative. Past medical history: As per history of present illness and as reviewed below otherwise noncontributory. Surgical history: As per history of present illness and as reviewed below otherwise noncontributory. Social history: No reported history of drug abuse. Family history: As per history of present illness and as reviewed below otherwise noncontributory. Physical exam: This patient was seen and evaluated during the 2019 SARS-CoV-2 novel coronavirus pandemic period. Community viral transmission is ongoing at time of this encounter and the emergency department is operating under pandemic response procedures. Constitutional: Patient is oriented to person, place, and time. Appears well- developed and well-nourished. No distress. HEENT: Moist mucous membranes Head: Normocephalic and atraumatic. Neck supple, no nuchal rigidity, no photophobia, no Kernig's sign or Brudzinski sign, patient does not present with signs or symptoms of be consistent with meningitis. Eyes: Right eye exhibits no discharge. Left eye exhibits no discharge. No scleral icterus Neck: Normal range of motion. No tracheal deviation present. Cardiovascular: Normal rate and regular rhythm. Pulmonary: Effort normal, no respiratory distress. Abdominal: No distention Musculoskeletal: Normal range of motion Neurologic: Alert and oriented to person, place and time. Skin: [place], warm and dry. Psychiatric: Normal mood and affect. Behavior is normal. Judgment and thought content normal. Nursing note and vital signs have been reviewed Patient's ER physical exam is significant for a well-developed well-nourished obese gentleman who is uncooperative and somewhat exhibiting self-destructive behavior in the ED. Patient has laid on the ground multiple times and initially was refusing to sleep in his bed until he was promised that we would transfer him to [facility] again for detox. Patient does have some bruising to his left periorbital region however none evaluating his prior visit from 2 days ago that required a CT scan of his head it appears that this is not a new injury. On appearance, the patient's bruise is dark blue and purple and consistent with a bruise at approximately 48 hours old. Patient has no C-spine T-spine or L-spine tenderness to palpation. Patient has no left upper or right upper quadrant tenderness to palpation. Patient has no c repitus to palpation to the anterior chest wall. Patient is neurologically intact. Patient does not present with any signs or or symptoms that would be consistent with acute intracranial, intra-abdominal, intrathoracic, or long bone injury. All long bones have been palpated and range of motion been performed and there is no evidence of any acute pathology. Diagnostics: CBC, CMP, alcohol level, urine drug screen Therapeutics: Zyprexa 10 mg IM, Benadryl 50 mg IM Assessment and plan: This is a 45-year-old gentleman who presents ER today by EMS after calling his AA sponsor. Upon EMS arrival, they report that the patient's home was extremely disheveled and uninhabitable. Patient was aggressive in his home and in reading his prior visits to the hospital it appears that this is a ongoing behavior that he exhibits when EMS arrived. In the ED, patient is extremely intoxicated and full history and full reliable physical exam is difficult to obtain. Patient is not exhibiting any signs or symptoms of be highly concerning for acute brain injury or trauma, acute intrathoracic, intra-abdominal, neurological or long bone injuries. Secondary to the patient's aggressive behavior and concern for his own safety as well as safety of others in the ED, the patient was given Zyprexa 10 mg IM and Benadryl 50 mg as well as IV fluids as we await his lab results. Once patient is sober he will need to be reevaluated for options. Definitive disposition and diagnosis as appropriate pending reevaluation and review of above. - Related Data Allergies Allergy/AdvReac Type Severity Reaction Status Date / Time Penicillins Allergy Hives Verified 11/30/20 17:20 Home Meds: Home Meds Doxycycline [Vibramycin] 100 mg PO BID 7 Days #14 cap 10/15/20 [Rx] Sertraline [Zoloft] 50 mg PO DAILY 10/15/20 [History] buPROPion [Wellbutrin] 1 tab PO DAILY 10/15/20 [History] cloNIDine [Catapres] mg PO DAILY 11/28/20 [History] Past Medical History - Past Health History Medical/Surgical History: Denies Medical/Surgical History HEENT History: Reports: None Cardiovascular History: Reports: None Respiratory History: Reports: Asthma Gastrointestinal History: Reports: None Genitourinary History: Reports: None Musculoskeletal History: Reports: None Neurological History: Reports: None Psychiatric History: Reports: Anxiety, Depression Endocrine/Metabolic History: Reports: None Hematologic History: Reports: None Immunologic History: Reports: None Oncologic (Cancer) History: Reports: None Dermatologic History: Reports: None - Infectious Disease History Infectious Disease History: Reports: None - Past Surgical History Head Surgeries/Procedures: Reports: None HEENT Surgical History: Reports: None Cardiovascular Surgical History: Reports: None Respiratory Surgical History: Reports: None GI Surgical History: Reports: None Male Surgical History: Reports: None Endocrine Surgical History: Reports: None Neurological Surgical History: Reports: None Musculoskeletal Surgical History: Reports: None Oncologic Surgical History: Reports: None Dermatological Surgical History: Reports: None Social & Family History - Family History Family Medical History: No Pertinent Family History - Caffeine Use Caffeine Use: Reports: None Departure - Departure Disposition: Home, Self-Care 01 Clinical Impression: Alcohol abuse - Discharge Information Instructions: Alcohol Use Disorder, Alcohol Abuse and Dependence Information, Adult Referrals: PCP,None [Primary Care Provider] - Forms: ED Department Discharge Additional Instructions: You evaluate today on an emergent basis. At this time you were intoxicated. I do recommend that you refrain from alcohol use. However I would like you to contact a rehabilitation center for further treatment. If you have any worsening symptoms or need further assistance please return to the emergency department. [facility] - [facility] [address] [place] [id number] [address] The patient is informed of any results of their evaluation and diagnostic workup and all questions are answered. They are given discharge instructions and return precautions. The patient is stable for discharge. The patient states they understand and agree with the plan and that they will return if their symptoms get worse or if they have any new concerns. The following information is given to patients seen in the emergency department who are being discharged to home. This information is to outline your options for follow-up care. We provide all patients seen in our emergency department with a follow-up referral. The need for follow-up, as well as the timing and circumstances, are variable depending upon the specifics of your emergency department visit. If you don't have a primary care physician on staff, we will provide you with a referral. We always advise you to contact your personal physician following an emergency department visit to inform them of the circumstance of the visit and for follow-up with them and/or the need for any referrals to a consulting specialist. The emergency department will also refer you to a specialist when appropriate. This referral assures that you have the opportunity for follow-up care with a specialist. All of these measure are taken in an effort to provide you with optimal care, which includes your follow-up. Under all circumstances we always encourage you to contact your private physician who remains a resource for coordinating your care. When calling for follow-up care, please make the office aware that this follow-up is from your recent emergency room visit. If for any reason you are refused follow-up, please contact the [facility] Emergency Department at and asked to speak to the emergency department charge nurse. <Brando Helm - Last Filed: 12/01/20 08:16> ED HPI GENERAL MEDICAL PROBLEM - History of Present Illness INITIAL COMMENTS - FREE TEXT/NARRATIVE: Patient was signed out to me by Dr. Head pending reevaluation at 6 PM I did reevaluate the patient and patient was still intoxicated at the time of my evaluation. The patient's vitals were stable at this time. The patient will be observed in the emergency department until sobriety. Labs reviewed CBC unremarkable. CMP revealed hypokalemia at 2.9, transaminitis with an AST of 41, ALT of 68 and alkaline phosphatase of 128. Magnesium is normal. Serum alcohol level is 262. On reevaluation patient was able to ambulate without any difficulty. He stated that he was ready to go. Therefore at this time I do believe the patient has reached clinical sobriety. He is to follow-up with his primary care physician for alcohol detox facilities. He was amenable to this plan. DISPOSITION: The patient was discharged home in stable condition. The patient will follow up with primary care physician in 1 to 3 days CONDITION: Fair PROCEDURES: None FINAL IMPRESSION(S)/DIAGNOSES: 1. Acute alcohol intoxication Brando Helm M.D. ED ROS GENERAL - Review of Systems Review Of Systems: See Below ED EXAM, GENERAL - Physical Exam Exam: See Below Course - Vital Signs Last Recorded V/S: Last Vital Signs Temp 36.1 C 11/30/20 16:38 Pulse 112 H 11/30/20 21:54 Resp 16 11/30/20 21:24 BP 119/79 11/30/20 21:24 Pulse Ox 95 11/30/20 21:54 - Orders/Labs/Meds Orders: Active Orders 24 hr Category Date Time Status Saline Lock Insert [OM.PC] Stat Oth 11/30/20 17:06 Ordered Labs: Laboratory Tests 11/30/20 11/30/20 Range/Units 17:59 17:59 WBC 6.52 (4.0-11.0) K/uL RBC 5.28 (4.50-5.90) M/uL Hgb 15.5 (13.0-17.0) g/dL Hct 45.0 (38.0-50.0) % MCV 85.2 (80.0-98.0) fL MCH 29.4 (27.0-32.0) pg MCHC 34.4 (31.0-37.0) g/dL RDW Std Deviation 44.7 (28.0-62.0) fl RDW Coeff of Davon 15 (11.0-15.0) % Plt Count 250 (150-400) K/uL MPV 9.80 (7.40-12.00) fL Neut % (Auto) 67.3 (48.0-80.0) % Lymph % (Auto) 20.1 (16.0-40.0) % [place] % (Auto) 10.9 (0.0-15.0) % Eos % (Auto) 1.2 (0.0-7.0) % Baso % (Auto) 0.5 (0.0-1.5) % Neut # (Auto) 4.4 (1.4-5.7) K/uL Lymph # (Auto) 1.3 (0.6-2.4) K/uL [place] # (Auto) 0.7 (0.0-0.8) K/uL Eos # (Auto) 0.1 (0.0-0.7) K/uL Baso # (Auto) 0.0 (0.0-0.1) K/uL Nucleated RBC % 0.0 /100WBC Nucleated RBCs # 0 K/uL Sodium 144 (136-148) mmol/L Potassium 2.9 L (3.5-5.1) mmol/L Chloride 103 (98-107) mmol/L Carbon Dioxide 23.1 (21.0-32.0) mmol/L BUN 9 (7.0-18.0) mg/dL Creatinine 0.9 (0.8-1.3) mg/dL Est Cr Clr Drug Dosing TNP Estimated GFR (MDRD) > 60.0 ml/min Glucose 113 H (74-106) mg/dL Calcium 8.7 (8.5-10.1) mg/dL Magnesium 1.9 (1.8-2.4) mg/dL Total Bilirubin 0.6 (0.2-1.0) mg/dL AST 41 H (15-37) IU/L ALT 68 H (14-63) IU/L Alkaline Phosphatase 128 H (46-116) U/L Total Protein 8.3 H (6.4-8.2) g/dL Albumin 3.8 (3.4-5.0) g/dL Globulin 4.5 H (2.6-4.0) g/dL Albumin/Globulin Ratio 0.8 L (0.9-1.6) Salicylates 0.6 (0-20) mg/dL Acetaminophen <2.0 ug/mL Ethyl Alcohol 262 mg/dL Meds: Medications Discontinued Medications Generic Name Dose Route Start Last Admin Trade Name Freq PRN Reason Stop Dose Admin Diphenhydramine HCl 50 mg 11/30/20 17:06 11/30/20 17:18 Diphenhydramine 50 Mg/Ml Sdv IM 11/30/20 17:07 50 mg ONETIME ONE Administration Sodium Chloride 1,000 mls @ 999 mls/hr 11/30/20 17:06 11/30/20 19:06 Normal Saline IV 11/30/20 18:06 Not Given .Bolus ONE Olanzapine 10 mg/ Sterile 2.1 mls @ 999 mls/hr 11/30/20 17:07 11/30/20 17:18 Water IM 11/30/20 17:08 999 mls/hr ONETIME ONE Administration Sodium Chloride 10 ml 11/30/20 17:06 Sodium Chloride 0.9% 10 Ml Syringe FLUSH ASDIRECTED PRN Keep Vein Open Sodium Chloride 2.5 ml 11/30/20 17:06 Sodium Chloride 0.9% 2.5 Ml Syringe FLUSH ASDIRECTED PRN Keep Vein Open Departure - Departure Time of Disposition: 22:04 Condition: Fair Sepsis Event Note (ED) - Focused Exam Vital Signs: Vital Signs Pulse Resp BP Pulse Ox 11/30/20 21:54 112 H 95 11/30/20 21:24 102 H 16 119/79 100
--- NOTE | 2020-11-30 18:21 | PCM.EKG ---
#1 Interpretation EKG Interpretation Comments: EKG: As interpreted by ER physician: Sonido: Nonspecific ST-T wave abnormalities Normal axis No evidence of ST elevation CO Normal sinus rhythm heart rate of 90
[2020-11-30 18:28] LABS: ACETAMINOPHEN <2.0 ug/mL; BLOOD UREA NITROGEN,BUN 9 mg/dL (7.0-18.0); CARBON DIOXIDE,CO2 23.1 mmol/L (21.0-32.0); CHLORIDE,CL 103 mmol/L (98-107); GLUCOSE RANDOM 113 mg/dL (74-106); POTASSIUM,K 2.9 mmol/L (3.5-5.1); SODIUM,NA 144 mmol/L (136-148)
== END 2020-11-30 22:10 | disposition home or self-care (01) ==
LOC: MW.ED 16:38
DX: F10.129 Alcohol abuse with intoxication, unspecified (principal); Z88.0 Allergy status to penicillin
CPT/HCPCS: 36415; 80053; 80143; 80179; 80307; 83735; 85025; 93005; 96372; 99284; J1200; J3490

== ENCOUNTER 2020-12-01 13:55 | Emergency (ER) | payer OTHER ==
[2020-12-01] MEDS ORDERED: Sodium Chloride 0.9% 10 ML Syringe FLUSH PRN (14:15)
[2020-12-01] MEDS ORDERED: Sodium Chloride 0.9% 2.5 ML Syringe FLUSH PRN (14:15)
[2020-12-01] MEDS ORDERED: Sodium Chloride 0.9% 1,000 ML IV ONE (14:15)
[2020-12-01] MEDS ORDERED: Potassium Chloride 10% 20 MEQ/15 ML Soln 30 ML UD Cup PO ONE (14:42)
[2020-12-01 15:12] LABS: BLOOD UREA NITROGEN,BUN 6 mg/dL (7.0-18.0); CARBON DIOXIDE,CO2 25.6 mmol/L (21.0-32.0); CHLORIDE,CL 104 mmol/L (98-107); GLUCOSE RANDOM 124 mg/dL (74-106); POTASSIUM,K 3.2 mmol/L (3.5-5.1); SODIUM,NA 143 mmol/L (136-148)
--- NOTE | 2020-12-01 18:11 | EDM.PDOC ---
<Trever Head - Last Filed: 12/01/20 17:44> ED HPI GENERAL MEDICAL PROBLEM - General Chief Complaint: Drug or Alcohol Abuse Stated Complaint: CHANGE IN MENTAL Time Seen by Provider: 12/01/20 14:13 - History of Present Illness INITIAL COMMENTS - FREE TEXT/NARRATIVE: HISTORY AND PHYSICAL: History of present illness: This is a 45-year-old gentleman with a history significant for sarcoidosis and asthma as well as a history significant for alcohol use disorder who presents to the ER today by EMS secondary to alcohol intoxication and poor self-care. Per EMS, patient was in the hallway of his apartment building covered in feces and so the landlord called EMS for assistance. Upon initial evaluation of the patient, he is somnolent but easily arousable and history was difficult to obtain. Review of systems: As per history of present illness and below otherwise all systems reviewed and negative. Past medical history: As per history of present illness and as reviewed below otherwise noncontri butory. Surgical history: As per history of present illness and as reviewed below otherwise noncontributory. Social history: No reported history of drug abuse. Family history: As per history of present illness and as reviewed below otherwise noncontributory. Physical exam: This patient was seen and evaluated during the 2019 SARS-CoV-2 novel coronavirus pandemic period. Community viral transmission is ongoing at time of this encounter and the emergency department is operating under pandemic response procedures. Constitutional: Patient is oriented to person, place, and time. Appears well- developed and well-nourished. No distress. Patient is poorly kempt with evidence of dried stool on his feet. HEENT: Moist mucous membranes. Head: Normocephalic. Patient with abrasion, soft to swelling and ecchymosis to his left periorbital region which is old. Patient has no C-spine, T-spine, L- spine tenderness palpation. Eyes: Right eye exhibits no discharge. Left eye exhibits no discharge. No scleral icterus Neck: Normal range of motion. No tracheal deviation present. Cardiovascular: Normal rate and regular rhythm. Pulmonary: Effort normal, no respiratory distress. Abdominal: No distention Musculoskeletal: Normal range of motion. All long bones been palpated and patient has no tenderness palpation. All long bones have been range of motion without difficulty or discomfort. Patient is able to ambulate in the ED with stable gait. Neurologic: Alert and oriented to person, place and time. Skin: [place], warm and dry. Psychiatric: Normal mood and affect. Behavior is normal. Judgment and thought content normal. Patient is exhibiting both competency as well as the capacity for medical decision-making at this time. Patient understands that he currently does have an alcohol addiction problem. Patient understands the severe adverse side effects of excessive alcohol use. Nursing note and vital signs have been reviewed Diagnostics: CBC, CMP within normal limits Patient's alcohol level was 383 Therapeutics: [] Assessment and plan: This is a 45-year-old gentleman with history significant for alcohol use disorder, sarcoidosis, asthma who reports that he was alcohol free for approximately 10 years but recently started drinking again several months ago. Patient was seen and evaluated in the ER yesterday for his alcohol use disorder and intoxication. After gaining clinical sobriety patient requested to be discharged from the ER and did not want further assistance. Upon arrival here to the ED, the patient has been requesting to be discharged to home. Patient has been sleeping in the ER for the last 4 hours and has been extremely cooperative and pleasant. 5:00 PM: Patient currently is alert awake and orient x3 and able to give more appropriate history. Patient denies any recent fevers, shakes, chills, nausea, vomiting, diarrhea, dysuria, frequency, urgency, chest pain, abdominal pain. Patient reports he has diffuse muscle pain. Patient reports that he has an injury to his left forehead secondary to trauma 2 days ago from a fall. Patient reports no recent trauma to his head. Patient reports that he was at [facility] for alcohol detox and felt that he did get some benefit from it. Patient reports that he was started on clonidine and feels the clonidine does help him with his addiction. Patient reports that his mother is coming into town to assist him. During my evaluation at 5:00, the patient had just finished eating dinner here in the ED and is requesting to be discharged home. Patient reports that he is worried about his 2 [place] terrier's who are at home and he wants to take care of his [place] terrier. Patient reports that he does not want assistance with alcohol detox at this time and just wants to be discharged. At approximately 5:15 PM, patient's mother called the ED for an update. She reports that she is currently in [place] and in his apartment cleaning it up and try to get rid of all the alcohol that is in there. She feels that her son is a danger to himself secondary to his significant alcohol use. She is in the process right now to see if she can get a court ordered committal for court mandated alcohol detox. She reports that after she finishes cleaning his room and speaks to the police regarding the court ordered committal that she will come to the ED to sit by his bedside. She has requested that we not discharge him from the ER until she comes to see him. I did discuss with the patient that his mother is in town and that she did call and she is requested that he stay in the ED until she comes. Patient is agreeable to this plan at this time. Mother reports that she is at his apartment now cleaning it up and searching for all the bottles of alcohol to get rid of them. She is in the process of attempting to get a emergency court hold through [place] [employer]. I have also discussed with the mother that if the patient insists on leaving at any point, that I would not be able to hold him against as well as he is currently exhibiting both the capacity for medical decision and competency to make decisions on his own. I have informed her that we would let him stay asleep here for as long as we could until she is able to attempt to obtain the court hold for him. I discussed with the patient that his mother currently is in town and she has requested for him to stay and he is amenable to this plan. After discussing this with the patient, he immediately lay down in the bed and asked for warm blanket to get some sleep. Patient has been monitored over the last hour and he has been resting comfortably and does not need any further requests at this time to leave. Definitive disposition and diagnosis as appropriate pending reevaluation and review of above. - Related Data Allergies Allergy/AdvReac Type Severity Reaction Status Date / Time Penicillins Allergy Hives Verified 12/01/20 14:10 Home Meds: Home Meds Doxycycline [Vibramycin] 100 mg PO BID 7 Days #14 cap 10/15/20 [Rx] Sertraline [Zoloft] 50 mg PO DAILY 10/15/20 [History] buPROPion [Wellbutrin] 1 tab PO DAILY 10/15/20 [History] cloNIDine [Catapres] mg PO DAILY 11/28/20 [History] Past Medical History - Past Health History Medical/Surgical History: Denies Medical/Surgical History HEENT History: Reports: None Cardiovascular History: Reports: None Respiratory History: Reports: Asthma Gastrointestinal History: Reports: None Genitourinary History: Reports: None Musculoskeletal History: Reports: None Neurological History: Reports: None Psychiatric History: Reports: Anxiety, Depression Endocrine/Metabolic History: Reports: None Hematologic History: Reports: None Immunologic History: Reports: None Oncologic (Cancer) History: Reports: None Dermatologic History: Reports: None - Infectious Disease History Infectious Disease History: Reports: None - Past Surgical History Head Surgeries/Procedures: Reports: None HEENT Surgical History: Reports: None Cardiovascular Surgical History: Reports: None Respiratory Surgical History: Reports: None GI Surgical History: Reports: None Male Surgical History: Reports: None Endocrine Surgical History: Reports: None Neurological Surgical History: Reports: None Musculoskeletal Surgical History: Reports: None Oncologic Surgical History: Reports: None Dermatological Surgical History: Reports: None Social & Family History - Family History Family Medical History: No Pertinent Family History - Caffeine Use Caffeine Use: Reports: None ED ROS GENERAL - Review of Systems Review Of Systems: See Below ED EXAM, GENERAL - Physical Exam Exam: See Below Departure - Departure Disposition: Home, Self-Care 01 Clinical Impression: Alcohol use disorder, severe, dependence - Discharge Information Instructions: Alcohol Intoxication, [id number] Referrals: PCP,Unknown [Primary Care Provider] - Forms: ED Department Discharge Additional Instructions: Your evaluated today on an emergent basis. He was severely intoxicated today. We do recommend that you follow-up with a substance abuse program for detoxification. Alcohol withdrawal is dangerous therefore a detoxification program is necessary. I recommend that you take a multivitamin daily with thiamine. You should also take vitamin B12. We will provide you with community resources. You are welcome to return to the emergency department if you have any concerns. [facility] - Primary Care [address] [place] [id number] [facility] [address] [place] [id number] The patient is informed of any results of their evaluation and diagnostic workup and all questions are answered. They are given discharge instructions and return precautions. The patient is stable for discharge. The patient states they understand and agree with the plan and that they will return if their symptoms get worse or if they have any new concerns. The following information is given to patients seen in the emergency department who are being discharged to home. This information is to outline your options for follow-up care. We provide all patients seen in our emergency department with a follow-up referral. The need for follow-up, as well as the timing and circumstances, are variable depending upon the specifics of your emergency department visit. If you don't have a primary care physician on staff, we will provide you with a referral. We always advise you to contact your personal physician following an emergency department visit to inform them of the circumstance of the visit and for follow-up with them and/or the need for any referrals to a consulting spec ialist. The emergency department will also refer you to a specialist when appropriate. This referral assures that you have the opportunity for follow-up care with a specialist. All of these measure are taken in an effort to provide you with optimal care, which includes your follow-up. Under all circumstances we always encourage you to contact your private physician who remains a resource for coordinating your care. When calling for follow-up care, please make the office aware that this follow-up is from your recent emergency room visit. If for any reason you are refused follow-up, please contact the [facility] Emergency Department at and asked to speak to the emergency department charge nurse. Sepsis Event Note (ED) - Evaluation Sepsis Screening Result: No Definite Risk <Brando Helm - Last Filed: 12/03/20 13:45> ED HPI GENERAL MEDICAL PROBLEM - History of Present Illness INITIAL COMMENTS - FREE TEXT/NARRATIVE: Patient was signed out to me by Dr. Head pending reevaluation for sobriety at 7 PM. On reevaluation the patient's vitals continue to remain normal. He was still clinically intoxicated at this time and with a level of 383 we will observe the patient in the emergency department for p.o. toleration. Given in signout the patient's mother was cleaning up the patient's home and with likely come for him or have a petition for him for chemical dependency. Patient was observed in the emergency department patient was able to ambulate without any difficulty and tolerate p.o. He was requesting discharge at this time. Did contact the patient's mother and she did come to pharmacy picking tech the patient. He was given strict return precautions. He is amenable discharge and had no further questions DISPOSITION: The patient was discharged home in stable condition. The patient will follow up with primary care physician or rehabilitation center CONDITION: Fair PROCEDURES: None FINAL IMPRESSION(S)/DIAGNOSES: 1. Acute alcohol intoxication 2. Acute alcoholic hepatitis 3. Acute hypokalemia likely secondary to alcohol use disorder Brando Helm M.D. Course - Vital Signs Last Recorded V/S: Last Vital Signs Temp 36.3 C 12/01/20 14:10 Pulse 105 H 12/01/20 20:20 Resp 18 12/01/20 20:20 BP 129/84 12/01/20 20:20 Pulse Ox 100 12/01/20 20:20 - Orders/Labs/Meds Labs: Laboratory Tests 12/01/20 12/01/20 Range/Units 14:45 14:45 WBC 4.62 (4.0-11.0) K/uL RBC 5.11 (4.50-5.90) M/uL Hgb 14.8 (13.0-17.0) g/dL Hct 43.7 (38.0-50.0) % MCV 85.5 (80.0-98.0) fL MCH 29.0 (27.0-32.0) pg MCHC 33.9 (31.0-37.0) g/dL RDW Std Deviation 45.8 (28.0-62.0) fl RDW Coeff of Davon 15 (11.0-15.0) % Plt Count 261 (150-400) K/uL MPV 9.60 (7.40-12.00) fL Neut % (Auto) 56.5 (48.0-80.0) % Lymph % (Auto) 24.7 (16.0-40.0) % Bowie % (Auto) 13.0 (0.0-15.0) % Eos % (Auto) 4.1 (0.0-7.0) % Baso % (Auto) 1.7 H (0.0-1.5) % Neut # (Auto) 2.6 (1.4-5.7) K/uL Lymph # (Auto) 1.1 (0.6-2.4) K/uL Bowie # (Auto) 0.6 (0.0-0.8) K/uL Eos # (Auto) 0.2 (0.0-0.7) K/uL Baso # (Auto) 0.1 (0.0-0.1) K/uL Nucleated RBC % 0.0 /100WBC Nucleated RBCs # 0 K/uL Sodium 143 (136-148) mmol/L Potassium 3.2 L (3.5-5.1) mmol/L Chloride 104 (98-107) mmol/L Carbon Dioxide 25.6 (21.0-32.0) mmol/L BUN 6 L (7.0-18.0) mg/dL Creatinine 0.9 (0.8-1.3) mg/dL Est Cr Clr Drug Dosing TNP Estimated GFR (MDRD) > 60.0 ml/min Glucose 124 H (74-106) mg/dL Calcium 8.1 L (8.5-10.1) mg/dL Total Bilirubin 0.3 (0.2-1.0) mg/dL AST 50 H (15-37) IU/L ALT 83 H (14-63) IU/L Alkaline Phosphatase 119 H (46-116) U/L Total Protein 8.0 (6.4-8.2) g/dL Albumin 3.6 (3.4-5.0) g/dL Globulin 4.4 H (2.6-4.0) g/dL Albumin/Globulin Ratio 0.8 L (0.9-1.6) Ethyl Alcohol 383 mg/dL Meds: Medications Discontinued Medications Generic Name Dose Route Start Last Admin Trade Name Freq PRN Reason Stop Dose Admin Sodium Chloride 1,000 mls @ 999 mls/hr 12/01/20 14:15 12/01/20 19:30 Normal Saline IV 12/01/20 15:15 Not Given .Bolus ONE Potassium Chloride 40 meq 12/01/20 14:42 12/01/20 19:30 Potassium Chloride 10% 20 Meq/15 Ml Soln 30 Ml Ud Cup PO 12/01/20 14:43 Not Given ONETIME ONE Sodium Chloride 10 ml 12/01/20 14:15 Sodium Chloride 0.9% 10 Ml Syringe FLUSH ASDIRECTED PRN Keep Vein Open Sodium Chloride 2.5 ml 12/01/20 14:15 Sodium Chloride 0.9% 2.5 Ml Syringe FLUSH ASDIRECTED PRN Keep Vein Open Departure - Departure Time of Disposition: 20:13 - Discharge Information *PRESCRIPTION DRUG MONITORING PROGRAM REVIEWED*: No *COPY OF PRESCRIPTION DRUG MONITORING REPORT IN PATIENT EHSAN: No
== END 2020-12-01 20:20 | disposition home or self-care (01) ==
LOC: MW.ED 13:55
DX: K70.10 Alcoholic hepatitis without ascites (principal); F10.229 Alcohol dependence with intoxication, unspecified; Z88.0 Allergy status to penicillin; Y90.8 Blood alcohol level of 240 mg/100 ml or more
CPT/HCPCS: 36415; 80053; 80307; 85025; 99284

== ENCOUNTER 2020-12-25 00:19 | Emergency (ER) | payer OTHER ==
[2020-12-25] MEDS ORDERED: LORazepam 2 MG/ML SDV IM ONE (00:21)
[2020-12-25] MEDS ORDERED: Haloperidol Lactate 5 MG/ML SDV IM ONE (00:21)
[2020-12-25] MEDS ORDERED: diphenhydrAMINE 50 MG/ML SDV IM ONE (00:21)
--- NOTE | 2020-12-25 00:28 | EDM.PDOC ---
ED HPI GENERAL MEDICAL PROBLEM - General Stated Complaint: ETOH Time Seen by Provider: 12/25/20 00:21 Source of Information: Reports: Patient, EMS, Police History Limitations: Reports: Combative/Threatening, Intoxication - History of Present Illness INITIAL COMMENTS - FREE TEXT/NARRATIVE: 45-year-old male past medical history alcoholism, frequent ER visits for agitation and intoxication presents for agitation and intoxication. Patient is been drinking heavily today and was combative at home prompting his mother to call EMS. He was combative with EMS and does admit to drinking heavily tonight. Patient denies any other complaints although history is limited secondary to patient on cooperativity and intoxication. - Related Data Allergies Allergy/AdvReac Type Severity Reaction Status Date / Time Penicillins Allergy Hives Verified 12/01/20 14:10 Home Meds: Home Meds Doxycycline [Vibramycin] 100 mg PO BID 7 Days #14 cap 10/15/20 [Rx] Sertraline [Zoloft] 50 mg PO DAILY 10/15/20 [History] buPROPion [Wellbutrin] 1 tab PO DAILY 10/15/20 [History] cloNIDine [Catapres] mg PO DAILY 11/28/20 [History] Past Medical History - Past Health History Medical/Surgical History: Denies Medical/Surgical History HEENT History: Reports: None Cardiovascular History: Reports: None Respiratory History: Reports: Asthma Gastrointestinal History: Reports: None Genitourinary History: Reports: None Musculoskeletal History: Reports: None Neurological History: Reports: None Psychiatric History: Reports: Anxiety, Depression Endocrine/Metabolic History: Reports: None Hematologic History: Reports: None Immunologic History: Reports: None Oncologic (Cancer) History: Reports: None Dermatologic History: Reports: None - Infectious Disease History Infectious Disease History: Reports: None - Past Surgical History Head Surgeries/Procedures: Reports: None HEENT Surgical History: Reports: None Cardiovascular Surgical History: Reports: None Respiratory Surgical History: Reports: None GI Surgical History: Reports: None Male Surgical History: Reports: None Endocrine Surgical History: Reports: None Neurological Surgical History: Reports: None Musculoskeletal Surgical History: Reports: None Oncologic Surgical History: Reports: None Dermatological Surgical History: Reports: None Social & Family History - Family History Family Medical History: No Pertinent Family History - Caffeine Use Caffeine Use: Reports: None ED ROS GENERAL - Review of Systems Review Of Systems: Unable To Obtain (uncooperative patient) Reason Not Obtained: patient uncooperative ED EXAM, GENERAL - Physical Exam Exam: See Below Exam Limited By: No Limitations General Appearance: Alert, WD/WN, No Apparent Distress Eye Exam: Bilateral Eye: EOMI, PERRL Ears: Hearing Grossly Normal Nose: Normal Inspection Throat/Mouth: Normal Voice, No Airway Compromise Head: Atraumatic, Normocephalic Neck: Normal Inspection, Non-Tender Respiratory/Chest: No Respiratory Distress, Lungs Clear, Normal Breath Sounds, No Accessory Muscle Use Cardiovascular: Normal Peripheral Pulses, Regular Rate, Rhythm GI/Abdominal: Soft, Non-Tender Extremities: Normal Inspection Neurological: Alert Psychiatric: Other (agitated, intoxicated, aggressive, comabative) Skin Exam: Warm, Dry, Intact Course - Vital Signs Last Recorded V/S: Last Vital Signs Temp 97.5 F 12/25/20 00:19 Pulse 87 12/25/20 00:19 Resp 18 12/25/20 00:19 BP 113/71 12/25/20 00:19 Pulse Ox 96 12/25/20 00:19 - Orders/Labs/Meds Meds: Medications Discontinued Medications Generic Name Dose Route Start Last Admin Trade Name Kristyn PRN Reason Stop Dose Admin Diphenhydramine HCl 50 mg 12/25/20 00:21 12/25/20 00:42 Diphenhydramine 50 Mg/Ml Sdv IM 12/25/20 00:22 50 mg ONETIME ONE Administration Haloperidol Lactate 5 mg 12/25/20 00:21 12/25/20 00:43 Haloperidol Lactate 5 Mg/Ml Sdv IM 12/25/20 00:22 5 mg ONETIME ONE Administration Lorazepam 2 mg 12/25/20 00:21 12/25/20 00:43 Lorazepam 2 Mg/Ml Sdv IM 12/25/20 00:22 2 mg ONETIME ONE Administration - Re-Assessments/Exams Free Text/Narrative Re-Assessment/Exam: 12/25/20 00:27 Patient presents with agitation and intoxication. He is a known alcoholic and admits to drinking heavily tonight. Patient was given Haldol, Ativan, Benadryl for sedation as he was aggressive with myself and other staff members, trying to get out of bed, grabbing ice, screaming obscenities 12/25/20 02:57 Patient is less aggressive, resting comfortably. I informed him that we will ambulate-test him in an hour and call his mother to come pick him up. He is agreeable with that plan. 12/25/20 03:35 Patient is ambulatory without gait abnormality. Stable for discharge. Departure - Departure Time of Disposition: 03:35 Disposition: Home, Self-Care 01 Condition: Good Clinical Impression: Alcohol abuse - Discharge Information Instructions: Alcohol Use Disorder Referrals: PCP,None [Primary Care Provider] - Additional Instructions: You presented to the emergency department with aggression secondary to alcohol abuse. Treatment center information is provided below if you are interested in quitting alcohol. [facility] [address], [place] [facility], [facility] [address], [place] [facility] [address] [place] [address] [facility] Hospitalization Program [address] [address] [facility] [address] [place] [phone] The following information is given to patients seen in the emergency department who are being discharged to home. This information is to outline your options for follow-up care. We provide all patients seen in our emergency department with a follow-up referral. The need for follow-up, as well as the timing and circumstances, are variable depending upon the specifics of your emergency department visit. If you don't have a primary care physician on staff, we will provide you with a referral. We always advise you to contact your personal physician following an emergency department visit to inform them of the circumstance of the visit and for follow-up with them and/or the need for any referrals to a consulting specialist. The emergency department will also refer you to a specialist when appropriate. This referral assures that you have the opportunity for follow-up care with a specialist. All of these measure are taken in an effort to provide you with optimal care, which includes your follow-up. Under all circumstances we always encourage you to contact your private physician who remains a resource for coordinating your care. When calling for fo llow-up care, please make the office aware that this follow-up is from your recent emergency room visit. If for any reason you are refused follow-up, please contact the [facility] Emergency Department at and asked to speak to the emergency department charge nurse. Please follow up with your primary care physician. If you do not have a primary care physician, see below: [facility] Care [address] [place] [id number] [facility] [address] [place] [address] [facility] - [facility] [address] [place] [id number] Sepsis Event Note (ED) - Focused Exam Vital Signs: Vital Signs Temp Pulse Resp BP Pulse Ox 12/25/20 00:19 97.5 F 87 18 113/71 96
== END 2020-12-25 04:05 | disposition home or self-care (01) ==
LOC: MW.ED 00:19
DX: F10.129 Alcohol abuse with intoxication, unspecified (principal); J45.909 Unspecified asthma, uncomplicated; Z88.0 Allergy status to penicillin; Z79.899 Other long term (current) drug therapy
CPT/HCPCS: 96372; 99284; J1200; J1630; J2060

== ENCOUNTER 2020-12-26 19:09 | Emergency (ER) | payer OTHER ==
[2020-12-26] MEDS ORDERED: Sodium Chloride 0.9% 2.5 ML Syringe FLUSH PRN (19:16)
[2020-12-26] MEDS ORDERED: Sodium Chloride 0.9% 10 ML Syringe FLUSH PRN (19:16)
--- NOTE | 2020-12-26 19:37 | EDM.PDOC ---
ED HPI GENERAL MEDICAL PROBLEM - General Chief Complaint: Behavioral/Psych Stated Complaint: MEDICAL CLEARANCE, MENTAL HEALTH Time Seen by Provider: 12/26/20 19:15 Source of Information: Reports: Patient, Police - History of Present Illness INITIAL COMMENTS - FREE TEXT/NARRATIVE: 45-year-old male brought by police for medical clearance prior to detox transfer, bed available in [facility]. Patient is under court ordered detox hold due to mother's concern in regards to patient undergoing possible detox, and frequently intoxicated with alcohol, frequent hospital and ER visits and recently patient reporting hallucinations of seeing an elephant carrying a towel calling it a sick dog. He has apparently been taking his Suboxone but not at levels per prescribers orders, taking only half his usual dose. On arrival here the patient reports "I am drunk" and asking for his mother. No other symptoms at this time. Patient denies any suicidal ideation and when asked if he wants to hurt himself he says "I do not know". Patient is intermittently calm and asking for his mother and occasionally screaming out, yelling and requesting to have change the handcuffs removed as he is in police custody. Past medical history: substance abuse and intoxication Past surgical history: Metacarpal fracture repair Social history: Alcohol, no tobacco, occasional heroin - Related Data Allergies Allergy/AdvReac Type Severity Reaction Status Date / Time Penicillins Allergy Hives Verified 12/26/20 19:19 Home Meds: Home Meds Doxycycline [Vibramycin] 100 mg PO BID 7 Days #14 cap 10/15/20 [Rx] Sertraline [Zoloft] 50 mg PO DAILY 10/15/20 [History] buPROPion [Wellbutrin] 1 tab PO DAILY 10/15/20 [History] cloNIDine [Catapres] mg PO DAILY 11/28/20 [History] Past Medical History - Past Health History Medical/Surgical History: Denies Medical/Surgical History HEENT History: Reports: None Cardiovascular History: Reports: None Respiratory History: Reports: Asthma Gastrointestinal History: Reports: None Genitourinary History: Reports: None Musculoskeletal History: Reports: None Neurological History: Reports: None Psychiatric History: Reports: Addiction, Anxiety, Depression, Suicidal Ideation Endocrine/Metabolic History: Reports: None Insulin Pump Model and Patient Account Liaison: None Hematologic History: Reports: None Immunologic History: Reports: None Oncologic (Cancer) History: Reports: None Dermatologic History: Reports: None - Infectious Disease History Infectious Disease History: Reports: None - Past Surgical History Head Surgeries/Procedures: Reports: None HEENT Surgical History: Reports: None Cardiovascular Surgical History: Reports: None Respiratory Surgical History: Reports: None GI Surgical History: Reports: None Male Surgical History: Reports: None Endocrine Surgical History: Reports: None Neurological Surgical History: Reports: None Musculoskeletal Surgical History: Reports: None Oncologic Surgical History: Reports: None Dermatological Surgical History: Reports: None Social & Family History - Family History Family Medical History: No Pertinent Family History - Caffeine Use Caffeine Use: Reports: None - Recreational Drug Use Recreational Drug Use: Yes Drug Use in Last 12 Months: Yes Recreational Drug Type: Reports: Heroin ED ROS GENERAL - Review of Systems Review Of Systems: See Below Constitutional: Reports: Fever Respiratory: Reports: Shortness of Breath Cardiovascular: Reports: Chest Pain GI/Abdominal: Reports: Abdominal Pain Psychiatric: Reports: Anxiety, Hallucinations (None currently) ED EXAM, GENERAL - Physical Exam Exam: See Below General Appearance: Alert, WD/WN, No Apparent Distress Throat/Mouth: Normal Inspection Head: Atraumatic, Normocephalic Neck: Normal Inspection, Supple Respiratory/Chest: No Respiratory Distress Cardiovascular: Regular Rate, Rhythm GI/Abdominal: No Distention Back Exam: Full Range of Motion Extremities: Normal Inspection, Normal Range of Motion Neurological: Alert, Other (intoxicated, moves all extremities) Psychiatric: Anxious, Other (occasionally hostile, denies SI, previously reporting hallucinations. ) Skin Exam: Warm, Dry, Intact #1 Interpretation EKG Date: 12/26/20 Time: 19:52 Rhythm: NSR [place]: LAD-Left [place] Deviation P-Wave: Present QRS: Normal ST-T: Normal QT: Normal Course - Vital Signs Text/Narrative:: Patient presenting intoxicated, in police in custody with plan for transfer to [facility] for detox treatment. Patient with elevated LFTs on lab work. EKG with no acute ischemia. Patient was unable to provide urine prior to transfer and will go to emergency department there while awaiting bed placement, therefore defer urine at this time. Last Recorded V/S: Last Vital Signs Temp 97.3 F 12/26/20 20:00 Pulse 91 12/26/20 20:00 Resp 18 12/26/20 20:00 BP 129/84 12/26/20 20:00 Pulse Ox 93 L 12/26/20 20:00 - Orders/Labs/Meds Orders: Active Orders 24 hr Category Date Time Status EKG Documentation Completion [RC] STAT Care 12/26/20 19:17 Active CORONAVIRUS COVID-19 IZABELA [MOLEC] Stat Lab 12/26/20 19:46 Received DRUG SCREEN, URINE [URCHEM] Stat Lab 12/26/20 19:16 Ordered Labs: Laboratory Tests 12/26/20 12/26/20 Range/Units 19:40 19:40 WBC 5.33 (4.0-11.0) K/uL RBC 5.76 (4.50-5.90) M/uL Hgb 16.6 (13.0-17.0) g/dL Hct 49.8 (38.0-50.0) % MCV 86.5 (80.0-98.0) fL MCH 28.8 (27.0-32.0) pg MCHC 33.3 (31.0-37.0) g/dL RDW Std Deviation 50.5 (28.0-62.0) fl RDW Coeff of [place] 16 H (11.0-15.0) % Plt Count 341 (150-400) K/uL MPV 9.50 (7.40-12.00) fL Neut % (Auto) 68.8 (48.0-80.0) % Lymph % (Auto) 24.4 (16.0-40.0) % [place] % (Auto) 5.4 (0.0-15.0) % Eos % (Auto) 0.8 (0.0-7.0) % Baso % (Auto) 0.6 (0.0-1.5) % Neut # (Auto) 3.7 (1.4-5.7) K/uL Lymph # (Auto) 1.3 (0.6-2.4) K/uL [place] # (Auto) 0.3 (0.0-0.8) K/uL Eos # (Auto) 0.0 (0.0-0.7) K/uL Baso # (Auto) 0.0 (0.0-0.1) K/uL Nucleated RBC % 0.0 /100WBC Nucleated RBCs # 0 K/uL Sodium 143 (136-148) mmol/L Potassium 3.8 (3.5-5.1) mmol/L Chloride 102 (98-107) mmol/L Carbon Dioxide 25.3 (21.0-32.0) mmol/L BUN 10 (7.0-18.0) mg/dL Creatinine 1.0 (0.8-1.3) mg/dL Est Cr Clr Drug Dosing TNP Estimated GFR (MDRD) > 60.0 ml/min Glucose 106 (74-106) mg/dL Calcium 8.3 L (8.5-10.1) mg/dL Total Bilirubin 0.3 (0.2-1.0) mg/dL AST 103 H (15-37) IU/L ALT 164 H (14-63) IU/L Alkaline Phosphatase 132 H (46-116) U/L Total Protein 8.5 H (6.4-8.2) g/dL Albumin 4.0 (3.4-5.0) g/dL Globulin 4.5 H (2.6-4.0) g/dL Albumin/Globulin Ratio 0.9 (0.9-1.6) Ethyl Alcohol 411 mg/dL Meds: Medications Discontinued Medications Generic Name Dose Route Start Last Admin Trade Name Freq PRN Reason Stop Dose Admin Sodium Chloride 10 ml 12/26/20 19:16 Sodium Chloride 0.9% 10 Ml Syringe FLUSH ASDIRECTED PRN Keep Vein Open Sodium Chloride 2.5 ml 12/26/20 19:16 Sodium Chloride 0.9% 2.5 Ml Syringe FLUSH ASDIRECTED PRN Keep Vein Open - Re-Assessments/Exams Free Text/Narrative Re-Assessment/Exam: 12/26/20 19:[address] Bahena, ER physician at [facility], who accepts the case pending labs - requests to draw labs, send patient and fax results to them. Departure - Departure Time of Disposition: 19:40 Disposition: DC/Tfer to Psych Hosp/Unit [facility] Clinical Impression: Alcohol intoxication Qualifiers: Complication of substance-induced condition: with unspecified complication Qualified Code(s): F10.929 - Alcohol use, unspecified with intoxication, unspecified - Discharge Information Referrals: PCP,None [Primary Care Provider] - Forms: ED Department Discharge Sepsis Event Note (ED) - Evaluation Sepsis Screening Result: No Definite Risk - Focused Exam Vital Signs: Vital Signs Temp Pulse Resp BP Pulse Ox 12/26/20 20:00 97.3 F 91 18 129/84 93 L 12/26/20 19:15 97.2 F 102 H 18 151/99 H 93 L - My Orders Last 24 Hours: My Active Orders 12/26/20 19:16 DRUG SCREEN, URINE [URCHEM] Stat 12/26/20 19:17 EKG Documentation Completion [RC] STAT 12/26/20 19:46 CORONAVIRUS COVID-19 IZABELA [MOLEC] Stat - Assessment/Plan Last 24 Hours: My Active Orders 12/26/20 19:16 DRUG SCREEN, URINE [URCHEM] Stat 12/26/20 19:17 EKG Documentation Completion [RC] STAT 12/26/20 19:46 CORONAVIRUS COVID-19 IZABELA [MOLEC] Stat
[2020-12-26 20:24] LABS: BLOOD UREA NITROGEN,BUN 10 mg/dL (7.0-18.0); CARBON DIOXIDE,CO2 25.3 mmol/L (21.0-32.0); CHLORIDE,CL 102 mmol/L (98-107); GLUCOSE RANDOM 106 mg/dL (74-106); POTASSIUM,K 3.8 mmol/L (3.5-5.1); SODIUM,NA 143 mmol/L (136-148)
== END 2020-12-26 20:00 ==
LOC: MW.ED 19:09
DX: F10.129 Alcohol abuse with intoxication, unspecified (principal); Z88.0 Allergy status to penicillin; Y90.8 Blood alcohol level of 240 mg/100 ml or more; Z20.822 Contact with and (suspected) exposure to COVID-19
CPT/HCPCS: 36415; 80053; 80307; 85025; 93005; 99285-25; U0002